=== PATIENT | female | born 1940 | race African-American/Black ===

== ENCOUNTER 2018-01-12 23:48 | Emergency (ER) | payer OTHER ==
[~2018-01-12] VITALS: Ht 175.3 cm; Wt 75.9 kg
[~2018-01-12 23:48] MED LIST: ASPI-1198 PO; HYDR12.54 PO; PHEN100C23 PO
[2018-01-13 00:09] LABS: GLUCOSE,POINT OF CARE 106 MG/DL (70-110)
[2018-01-13] MEDS ORDERED: AMLO-512 PO (00:09)
[2018-01-13] MEDS ORDERED: DABI75CA3 PO (00:09)
[2018-01-13] MEDS ORDERED: LOSA50TA25 PO (00:09)
[2018-01-13] MEDS ORDERED: ATEN50TA PO (00:11)
[2018-01-13 00:41] LABS: BASOPHILS % (AUTO) 0.9 % (0.0-2.0); EOSINOPHILS % (AUTO) 2.8 % (1.0-6.0); HEMATOCRIT 37.4 % (36-46); HEMOGLOBIN 12.4 g/dL (12.0-16.0); LYMPHOCYTES # (AUTO) 1.2 K/uL (1.0-4.8); LYMPHOCYTES % (AUTO) 29.3 % (22.0-44.0); MEAN CORPUSCULAR HGB CONC 33.2 G/dL (31.0-37.0); MEAN CORPUSCULAR VOLUME 90 fL (80-100); MONOCYTES # (AUTO) 0.4 K/uL (0.1-1.0); MONOCYTES % (AUTO) 10.5 % (2.0-9.0); NEUTROPHILS # (AUTO) 2.4 K/uL (1.8-7.7); NEUTROPHILS % (AUTO) 56.5 % (40.0-70.0); PLATELET COUNT (AUTO) 139 K/uL (150-450); RED BLOOD CELL COUNT(AUTO) 4.15 MIL/uL (4.00-5.20); RED CELL DISTRIBUTION WIDTH 15.4 % (11.5-14.5)
[2018-01-13 00:48] LABS: CARBON DIOXIDE 30 mmol/L (22-29); CHLORIDE 107 mmol/L (98-107); POTASSIUM 4.2 mmol/L (3.5-5.1); SODIUM SERUM 143 mmol/L (136-145)
[2018-01-13 00:49] LABS: ANION GAP 6 mmol/L (8-16); CALCIUM, TOTAL 9.6 mg/dL (8.8-10.5); CREATININE 1.06 mg/dL (0.60-1.30); GLUCOSE,RANDOM 107 mg/dL (70-110); UREA NITROGEN, BLOOD 15 mg/dL (7-18)
[2018-01-13 00:50] LABS: INR 1.1 (0.9-1.1); PROTHROMBIN TIME 11.8 SEC (9.4-11.6)
[2018-01-13 00:51] LABS: GLOMERULAR FILTR. RATE CALC > 60 mL/min (>60)
[2018-01-13 00:56] LABS: ALANINE AMINOTRANSFERASE 21 U/L (12-78); ALBUMIN 3.3 g/dL (3.4-5.0); ALKALINE PHOSPHATASE 83 U/L (46-116); BILIRUBIN,TOTAL 0.2 mg/dL (0.1-1.0); PHENYTOIN (DILANTIN) 14.4 mcg/mL (10.0-20.0)
[2018-01-13 01:11] LABS: ASPARTATE AMINOTRANSFERASE 23 U/L (15-37)
[2018-01-13 02:24] LABS: APPEARANCE,URINE CLEAR (CLEAR); BILIRUBIN,URINE NEGATIVE (NEGATIVE); GLUCOSE, URINE (UA) NEGATIVE (NEGATIVE); KETONES,URINE NEGATIVE (NEGATIVE); LEUKOCYTE ESTERASE ,URINE NEGATIVE (NEGATIVE); NITRATE,URINE NEGATIVE (NEGATIVE); OCCULT BLOOD,URINE NEGATIVE (NEGATIVE); PH,URINE 6.5 (5.0-8.0); PROTEIN,URINE NEGATIVE (NEGATIVE); UROBILINOGEN,URINE 0.2 mg/dL (<=1.0)
[2018-01-13 02:38] LABS: BACTERIA,URINE Few /HPF (None Seen); RBC,URINE 0-2 /HPF (0-2); SQUAMOUS EPITHELIAL CELL,UR Few /LPF (None Seen); WBC,URINE 0-2 /HPF (0-5)
[2018-01-13 03:12] VITALS: BP 178/81
[2018-01-13] MEDS ORDERED: ASPIRIN 81 MG CHEWABLE TABLET PO ONE (03:45)
== END 2018-01-13 04:01 | disposition short-term general hospital (02) ==
LOC: EMS 23:48
DX: G45.9 Transient cerebral ischemic attack, unspecified (principal); G43.909 Migraine, unspecified, not intractable, without status migrainosus; R60.0 Localized edema; G89.29 Other chronic pain; I10 Essential (primary) hypertension; Z86.73 Personal history of transient ischemic attack (TIA), and cerebral infarction without residual deficits
CPT/HCPCS: 70450; 93005; 99291

== ENCOUNTER 2023-04-20 09:01 | Emergency (ER) | payer OTHER ==
[~2023-04-20] VITALS: Ht 165.1 cm; Wt 63.6 kg
[~2023-04-20 09:01] MED LIST changes: +AMLO-258 PO; -ASPI-1198 PO; +ATEN-72 PO; +DABI75CA4 PO; -HYDR12.54 PO; +LOSA-382 PO
[2023-04-20 09:11] VITALS: TEMP 97.8
[2023-04-20] MEDS ORDERED: ONDANSETRON HCL 4 MG/2 ML VIAL IVP ONE (09:30)
[2023-04-20] MEDS ORDERED: SODIUM CHLORIDE 0.9% 1,000 ML IV ONE ×2 (09:30→11:15)
[2023-04-20] MEDS ORDERED: MORPHINE SULFATE 2 MG/ML SYRINGE IVP ONE (09:30)
[2023-04-20 10:03] LABS: EOSINOPHILS % (AUTO) 0.9 % (1.0-6.0); HEMATOCRIT 40.4 % (36-46); HEMOGLOBIN 13.9 g/dL (12.0-16.0); LYMPHOCYTES # (AUTO) 0.8 K/uL (1.0-4.8); LYMPHOCYTES % (AUTO) 29.1 % (22.0-44.0); MEAN CORPUSCULAR HEMOGLOBIN 31.2 pg (26.0-34.0); MEAN CORPUSCULAR HGB CONC 34.5 G/dL (31.0-37.0); MEAN CORPUSCULAR VOLUME 90 fL (80-100); MONOCYTES # (AUTO) 0.2 K/uL (0.1-1.0); MONOCYTES % (AUTO) 8.5 % (2.0-9.0); NEUTROPHILS # (AUTO) 1.7 K/uL (1.8-7.7); NEUTROPHILS % (AUTO) 60.5 % (40.0-70.0); PLATELET COUNT (AUTO) 112 K/uL (150-450); RED BLOOD CELL COUNT(AUTO) 4.47 MIL/uL (4.00-5.20); WHITE BLOOD COUNT (AUTO) 2.8 K/uL (4.5-11.0)
[2023-04-20 10:09] LABS: CALCIUM, TOTAL 9.6 mg/dL (8.8-10.5); CREATININE 1.31 mg/dL (0.60-1.30); POTASSIUM 3.3 mmol/L (3.5-5.1)
[2023-04-20 10:19] LABS: TROPONIN I-HIGH SENSITIVITY 21 ng/L (<51)
[2023-04-20 10:20] LABS: ALBUMIN 3.8 g/dL (3.4-5.0); BILIRUBIN,TOTAL 0.4 mg/dL (0.1-1.0)
[2023-04-20 10:29] LABS: PHENYTOIN (DILANTIN) 39.9 mcg/mL (10.0-20.0)
[2023-04-20 10:30] LABS: COVID AG,FIA SOURCE NASAL SWAB
[2023-04-20] MEDS ORDERED: LORazepam 2 MG/ML VIAL ONE (10:49)
[2023-04-20 10:51] LABS: SARS-COV2 (COVID) ANTIGEN,FIA Negative (Negative)
[2023-04-20 10:52] LABS: INFLUENZA TYPE A NEGATIVE FOR TYPE A (NEGATIVE); INFLUENZA TYPE B NEGATIVE FOR TYPE B (NEGATIVE)
[2023-04-20 11:02] LABS: RESPIRATORY SYNCYTIAL VIRS,FIA NEGATIVE (Negative)
[2023-04-20 12:44] VITALS: BP 148/61; PULSE 73; RESP 20
== END 2023-04-20 13:51 | disposition short-term general hospital (02) ==
LOC: EMS 09:01
DX: G40.909 Epilepsy, unspecified, not intractable, without status epilepticus (principal); T42.0X5A Adverse effect of hydantoin derivatives, initial encounter; R11.2 Nausea with vomiting, unspecified; G92.9 Unspecified toxic encephalopathy; I10 Essential (primary) hypertension; I25.10 Atherosclerotic heart disease of native coronary artery without angina pectoris; Z20.822 Contact with and (suspected) exposure to COVID-19; Y92.89 Other specified places as the place of occurrence of the external cause
CPT/HCPCS: 99291; 74176; 96374; 71045; 96361; 96375; 87426; 80053; 80185; 83690; 87420; 84484; 85025; 85379; 87804; 36415; 99292; 93005; J2060; J2270; J2405; J7030